=== PATIENT | female | born 1985 | race Caucasian/White ===

== ENCOUNTER 2022-04-03 13:24 | Emergency (ER) | payer OTHER, SELFPAY ==
[2022-04-03 13:28] VITALS: BP 120/77; PULSE 117; RESP 18; TEMP 37.5; O2SAT 96
--- NOTE | 2022-04-03 13:55 | ED.NAVMDI ---
HPI - Nausea/Vomiting/Diarrhea General Chief complaint: Nausea/Vomiting Stated complaint: Stomach flu, lightheaded, diarrhea Time Seen by Provider: 04/03/22 13:45 History of Present Illness HPI Narrative: This 37-year-old female comes in reporting diarrhea for the past 7 hours. She states that she has had about 30 episodes of diarrhea over this time frame. She also has had some nausea and vomiting. She reports some lightheadedness and arrives with tachycardia and a pulse at 117 beats per minute. She has not had any fever. She states that her young child has also had some GI symptoms recently. Related Data Home Medications Medication Instructions Recorded Confirmed albuterol sulfate 90 mcg/actuation inhalation 04/03/22 aerosol inhaler dextroamphetamine-amphetamine ER PO 04/03/22 10 mg 24hr capsule,extend release montelukast 10 mg tablet mg 04/03/22 Previous Rx's Medication Instructions Recorded ondansetron HCl 4 mg tablet 4 mg PO Q6H #20 tabs 04/03/22 Allergies Allergy/AdvReac Type Severity Reaction Status Date / Time No Known Drug Allergies Allergy Verified 04/03/22 13:32 Review of Systems Status of ROS: Reports: 10 or more systems reviewed and unremarkable except as noted in History and below Narrative: Constitutional: No fevers, no weight gain or loss. Eyes: No discharge. No vision changes. HENT: No congestion, no sore throat, no ear pain. Cardiovascular: No chest pain, no palpitations. Respiratory: No shortness of breath, no wheezes, no cough. Gastrointestinal: Vomiting and diarrhea as described above. Some abdominal pain which is improved recently. Genitourinary: No dysuria, no hematuria. Musculoskeletal: Normal range of motion. Skin: No rashes, no pruritis. Neurological: No dizziness, weakness, sensory change, speech change. Endo/Heme/Allergies: No bruising or bleeding. No polydipsia. Pysch: no suicidality, no anxiety, no insomnia. All other systems reviewed and are negative. PFSH PFSH Social History Smoking Status: Never smoker Do you use any of these nicotine containing products: None Second hand tobacco smoke exposure: No How often do you have a drink containing alcohol: monthly or less How many standard drinks containing alcohol do you have on a typical day: 1 or 2 How often do you have six or more drinks on one occasion: Never AUDIT-C Alcohol total score: 1 Non-prescribed substance use: denies use Exam Narrative: Exam Narrative: Constitutional: Well-developed, well-nourished, no acute distress. HEENT: Normocephalic, atraumatic. Neck: Normal range of motion. Nontender. Supple. Heart: Regular. No murmurs. Tachycardia. Intact distal pulses. Lungs: Clear to auscultation. No chest discomfort. No wheezes, rhonchi, or rales. Abdomen: Normal bowel sounds. Nontender. No rebound tenderness. Genitalia: Deferred. Back: No midline tenderness. Normal range of motion. Extremities: Normal range of motion. No injury. Skin: Intact. No rash. Warm. No erythema or pallor. Neurologic: No altered sensation. No weakness. Alert and oriented. Psychiatric: No suicidality. No anxiety or depression. No insomnia. Nursing notes and vitals signs are reviewed. Const: Vital Signs, click to edit/add: Vital Signs - 24 hr 04/03/22 13:28 04/03/22 14:55 Temperature 99.5 F Pulse Rate [Pulse Oximeter] 117 H 111 H Respiratory Rate 18 16 Blood Pressure [Ri t Upper Arm] 120/77 103/76 Pulse Oximetry 96 96 Oxygen Delivery Me thod Room Air Room Air Course Vital Signs Vital signs: Initial Vital Signs Temperature 99.5 F 04/03/22 13:28 Temperature Source Temporal Artery Scan 04/03/22 13:28 Pulse Rate 117 H 04/03/22 13:28 Pulse Rhythm 04/03/22 13:28 Respiratory Rate 18 04/03/22 13:28 Blood Pressure 120/77 04/03/22 13:28 Blood Pressure Mean 91 04/03/22 13:28 Blood Pressure Position Sitting 04/03/22 13:28 Pulse Oximetry 96 04/03/22 13:28 Oxygen Delivery Method 04/03/22 13:28 Vital Signs Temperature 99.5 F 04/03/22 13:28 Pulse Rate 117 H 04/03/22 13:28 Respiratory Rate 18 04/03/22 13:28 Blood Pressure 120/77 04/03/22 13:28 Pulse Oximetry 96 04/03/22 13:28 Oxygen Delivery Method 04/03/22 13:28 Temperature 99.5 F 04/03/22 13:28 Pulse Rate 111 H 04/03/22 14:55 Respiratory Rate 16 04/03/22 14:55 Blood Pressure 103/76 04/03/22 14:55 Pulse Oximetry 96 04/03/22 14:55 Oxygen Delivery Method 04/03/22 14:55 MDM - Nausea/Vomiting/Diarrhea MDM Narrative Medical decision making narrative: This patient comes in with persistent diarrhea and some vomiting since early this morning. She was seen in urgent care encouraged to come here for IV fluids. An IV was established and she received 2 L of normal saline intravenously along with 4 mg of Zofran. She states that she feels better and has not had any ongoing diarrhea or vomiting. Lab results returned with reassuring findings. It is noted that her white count is elevated to around 18,000 thousand. She was slightly tachycardic when she arrived and her heart rate did improve after IV fluids. The patient feels that she is okay to return home. She did receive a prescription for Zofran. Lab Data Labs: Lab Results 04/03/22 04/03/22 Range/Units 13:56 13:56 WBC 18.38 H (4.50-11.00) K/uL RBC 5.00 (4.00-5.20) m/uL Hgb 15.2 (12.0-16.0) gm/dL Hct 44.7 (33.0-51.0) % MCV 89 (80-100) fL MCH 30 (26-34) pg MCHC 34 (32-36) gm/dL RDW Coeff of Gallo 14.2 (11.5-15.5) % Plt Count 250 (140-440) K/uL Neut % (Auto) 95.5 H (42.0-72.0) % Lymph % (Auto) 2.7 L (20-44) % Mclennan % (Auto) 1.3 (0.0-11.0) % Eos % (Auto) 0.2 (0.0-7.0) % Baso % (Auto) 0.0 (0.0-3.0) % Neut # (Auto) 17.60 H (1.7-7.0) K/uL Lymph # (Auto) 0.50 L (0.90-2.90) K/uL Mclennan # (Auto) 0.20 (0.00-0.90) K/UL Eos # (Auto) 0.00 (0.00-0.50) K/uL Baso # (Auto) 0.00 (0.00-0.30) K/uL Abs Immat Gran (auto) 0.05 (0.00-0.30) K/uL Sodium 135 (135-149) mmol/L Potassium 4.1 (3.6-5.1) mmol/L Chloride 105 (96-114) mmol/L Carbon Dioxide 18 L (20-32) mmol/L BUN 15 (5-24) mg/dL Creatinine 0.6 (0.5-1.5) mg/dL Estimated GFR 118 ml/min Glucose 126 H (60-115) mg/dL Calcium 9.0 (8.4-10.6) mg/dL Discharge Plan Discharge Clinical Impression: Gastroenteritis Patient Disposition: Home, Self-Care Condition: Improved Additional Instructions: Take medication as needed and directed. Advance diet as tolerated. Follow up with MD or return if worsening. Prescriptions: New ondansetron HCl 4 mg tablet 4 mg PO Q6H Qty: 20 0RF No Action dextroamphetamine-amphetamine 10 mg capsule,extended release 24hr PO montelukast 10 mg tablet albuterol sulfate 90 mcg/actuation HFA aerosol inhaler INHALATION Label Comments: INHALE 2 PUFFS BY MOUTH EVERY 4 HOURS NEEDED Follow Up/Referrals: Gabriella Chery MD [Primary Care Provider] - Stand Alone Forms: [facility] Info Instructions
[2022-04-03] MEDS: 0.9 % SODIUM CHLORIDE 1000 ml 1,000 ML IV ×2 (13:58→15:46)
[2022-04-03 14:06] LABS: Eosinophils Percent Auto 0.2 % (0.0-7.0); Hematocrit 44.7 % (33.0-51.0); Hemoglobin* 15.2 gm/dL (12.0-16.0); Immature Granulocytes Abs Auto 0.05 K/uL (0.00-0.30); Lymphocytes Percent Auto 2.7 % (20-44); Mean Corpuscular HGB Conc 34 gm/dL (32-36); Mean Corpuscular Hemoglobin 30 pg (26-34); Mean Corpuscular Volume 89 fL (80-100); Monocytes Percent Auto 1.3 % (0.0-11.0); Neutrophils Percent Auto 95.5 % (42.0-72.0); Platelet Count* 250 K/uL (140-440); RDW Coefficient of Variation % 14.2 % (11.5-15.5)
[2022-04-03] MEDS: ONDANSETRON 2 MG/ML inj 4 MG IVP (14:07)
[2022-04-03 14:25] LABS: Chloride* 105 mmol/L (96-114); Sodium* 135 mmol/L (135-149)
[2022-04-03 14:26] LABS: Potassium* 4.1 mmol/L (3.6-5.1)
[2022-04-03 14:28] LABS: Carbon Dioxide* 18 mmol/L (20-32); Creatinine* 0.6 mg/dL (0.5-1.5); Estimated Glomerular Filt Rate 118 ml/min
[2022-04-03 14:29] LABS: Blood Urea Nitrogen* 15 mg/dL (5-24); Glucose* 126 mg/dL (60-115)
[2022-04-03 14:46] LABS: Slide Review Reflex No; White Blood Count* 18.38 K/uL (4.50-11.00)
[2022-04-03 14:55] VITALS: BP 103/76; PULSE 111; RESP 16; O2SAT 96
[2022-04-03 16:51] VITALS: PULSE 103; RESP 18
== END 2022-04-03 16:52 | disposition home or self-care (01) ==
PROVIDERS: Emergency Provider Emergency Medicine Emergency Medical Services; PCP Family Medicine
DX: K52.9 Noninfective gastroenteritis and colitis, unspecified (principal)
CPT/HCPCS: 36415; 80048; 85025; 96374; 99284; J2405; J7030

== ENCOUNTER 2022-05-26 13:00 | Outpatient (RCR) | payer OTHER, SELFPAY | END 2022-08-30 10:01 | disposition home or self-care (01) | PROVIDERS: PCP Family Medicine; Visit Provider Family Medicine | DX: R10.2 Pelvic and perineal pain (principal); Z51.89 Encounter for other specified aftercare | CPT/HCPCS: 97110; 97112; 97140; 97161; 97535 ==